=== PATIENT | male | born 1970 | race Caucasian/White ===

== ENCOUNTER 2016-05-02 20:41 | Emergency (ER) | payer BC ==
[~2016-05-02] VITALS: Ht 177.8 cm; Wt 83.9 kg
[2016-05-02] MEDS ORDERED: IV SET PRIMARY 1 EA INFUS.SET MC ONE (20:56)
[2016-05-02] MEDS ORDERED: IV NS 0.9% 1,000 ML ONE (20:57)
[2016-05-02] MEDS ORDERED: IV NS 0.9% 1,000 ML BAG IV ONE (21:00)
[2016-05-02 21:22] LABS: ANION GAP 15 (5-14); CALCIUM, SERUM 8.4 mg/dL (8.5-10.1); CARBON DIOXIDE 26 mmol/L (21-32); CHLORIDE 106 mmol/L (98-107); CREATININE 1.4 mg/dL (0.6-1.3); GFR 55 mL/min (>60); GLUCOSE 132 mg/dL (74-106); POTASSIUM 4.1 mmol/L (3.5-5.1); SODIUM SERUM 142 mmol/L (136-145); UREA NITROGEN, BLOOD 26 mg/dL (7-18)
[2016-05-02 21:31] LABS: TROPONIN I < 0.017 ng/mL (0.00-0.056)
[2016-05-02 21:32] LABS: PROTHROMBIN TIME 10.8 SECS (9.5-12.7)
[2016-05-02 21:48] LABS: BASOPHILS % (AUTO) 0.2 % (0.0-2.0); DIFF TOTAL % 100 %; EOSINOPHILS # (AUTO) 0.1 /CMM (0.0-0.7); EOSINOPHILS % (AUTO) 1.6 % (0.0-6.0); HEMATOCRIT 38 % (39-51); HEMOGLOBIN 12.7 g/dL (13.5-17.5); LYMPHOCYTES # (AUTO) 1.9 /CMM (0.8-4.8); LYMPHOCYTES % (AUTO) 25.4 % (20.0-44.0); MEAN CORPUSCULAR HEMOGLOBIN 28 PG (26.0-33.0); MEAN CORPUSCULAR HGB CONC 33 g/dl (31.0-36.0); MEAN CORPUSCULAR VOLUME 86 fL (80-96); MONOCYTES # (AUTO) 0.5 /CMM (0.1-1.30); MONOCYTES % (AUTO) 6.8 % (2.0-12.0); NEUTROPHILS # (AUTO) 4.9 /CMM (1.8-8.9); PLATELET COUNT (AUTO) 319 /CMM (150-450); RED BLOOD CELL COUNT(AUTO) 4.46 MIL/uL (4.5-6.0); WHITE BLOOD COUNT (AUTO) 7.5 K/uL (4.3-11.0)
[2016-05-02 22:20] VITALS: BP 120/62
== END 2016-05-02 22:20 | disposition home or self-care (01) ==
LOC: ER 20:43
DX: R55 Syncope and collapse (principal); I10 Essential (primary) hypertension; N20.0 Calculus of kidney
CPT/HCPCS: 36415; 71010-TC; 80048-TC; 82962-TC; 84484-TC; 85025-TC; 85730-TC; A4606; J7030; Z7610